=== PATIENT | female | born 1955 | race Two or more races ===

== ENCOUNTER 2023-03-10 18:29 | Emergency (ER) | payer OTHER ==
[~2023-03-10] VITALS: Ht 170.2 cm; Wt 59.0 kg
[2023-03-10] MEDS ORDERED: NEURONTIN600 M1 (18:36)
[2023-03-10] MEDS ORDERED: VASOFLEX TABLE1 EACH (18:37)
== END 2023-03-10 22:34 | disposition home or self-care (01) ==
LOC: ER 18:29
DX: I82.492 Acute embolism and thrombosis of other specified deep vein of left lower extremity (principal); M79.662 Pain in left lower leg

== ENCOUNTER 2023-09-28 18:46 | Emergency (ER) | payer OTHER ==
[~2023-09-28] VITALS: Ht 165.1 cm; Wt 61.2 kg
[~2023-09-28 18:46] MED LIST: NEURONTIN600 M1; VASOFLEX TABLE1 EACH
[2023-09-28] MEDS ORDERED: XARELTO15 MG PO (19:02)
== END 2023-09-28 19:33 | disposition home or self-care (01) ==
LOC: ER 18:46
DX: G62.89 Other specified polyneuropathies (principal); E78.00 Pure hypercholesterolemia, unspecified